=== PATIENT | female | born 2000 | race Caucasian/White ===

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

== ENCOUNTER → 2018-06-17 11:55 | Outpatient (CLI) | payer OTHER, MEDICAID, SELFPAY ==
--- NOTE | 2018-06-17 | DI.RAD.S_ITS ---
PROCEDURE: XR KNEE RT 3V INDICATIONS: RIGHT KNEE PAIN TECHNIQUE: 3 views of the knee were acquired. COMPARISON: None. FINDINGS: Bones: No fractures or dislocations. No suspicious bony lesions. Soft tissues: No joint effusion. No suspicious soft tissue calcifications. IMPRESSION: Negative right knee. If the patient's pain or other symptoms persist, consider further evaluation with MRI Dictated by: Arnie Liu M.D. on 06/17/2018 at 14:16 Approved by: Arnie Liu M.D. on 06/17/2018 at 14:17
== END ==
PROVIDERS: PCP Internal Medicine; Visit Provider Physician Assistant
DX: M25.561 Pain in right knee (principal)
CPT/HCPCS: 73562

== ENCOUNTER → 2018-08-15 12:29 | Outpatient (CLI) | payer OTHER, MEDICAID, SELFPAY ==
[2018-08-15 13:33] LABS: Add Manual Diff / Slide Review NO; Basophils Absolute Auto 0 /uL (0-100); Basophils Percent Auto 0.7 % (0-2); Eosinophils Absolute Auto 300 /uL (0-450); Eosinophils Percent Auto 4.1 % (2-4); Hematocrit 44.1 % (36-46); Hemoglobin 14.8 g/dL (12.0-16.0); Lymphocytes Absolute Auto 2600 /uL (1100-4500); Lymphocytes Percent Auto 39.9 % (25-40); Mean Corpuscular HGB Conc 33.5 % (30-36); Mean Corpuscular Hemoglobin 29.2 PG (26-34); Mean Corpuscular Volume 87.2 fL (80-100); Monocytes Absolute Auto 400 /uL (0-900); Neutrophils Absolute Auto 3200 /uL (1500-7000); Neutrophils Percent Auto 49.3 % (50-75); Platelet Count 230 X10^3/uL (150-400); Red Blood Cell Count 5.06 X10^6/uL (4.0-5.2); Red Cell Distribution Width 13.2 % (11.6-14.8); White Blood Cell Count 6.5 X10^3/uL (4.5-11.0)
[2018-08-15 13:47] LABS: Alanine Aminotransferase 28 IU/L (9-52); Albumin 4.5 g/dL (3.5-5.0); Albumin Globulin Ratio 1.6 (1.0-2.8); Alkaline Phosphatase 85 U/L (38-126); Aspartate Aminotransferase 23 IU/L (14-36); BUN Creatinine Ratio 18.6 (6-22); Bilirubin Total 0.2 mg/dL (0.2-1.3); Blood Urea Nitrogen 13 mg/dL (7-17); Calcium 9.6 mg/dL (8.4-10.2); Carbon Dioxide 26 mmol/L (22-32); Chloride 102 mmol/L (98-107); Estimated Glomerular Filt Rate > 60.0 mL/min (>60); Globulin 2.8 g/dL (1.7-4.1); Glucose 103 mg/dL (70-100); HEMOLYSIS < 15 (0-50); Potassium 4.4 mmol/L (3.4-5.1); Sodium 139 mmol/L (137-145); Total Protein 7.3 g/dL (6.3-8.2)
== END ==
PROVIDERS: PCP Family Medicine; Visit Provider Family Medicine
DX: B19.20 Unspecified viral hepatitis C without hepatic coma (principal); F19.11 Other psychoactive substance abuse, in remission
CPT/HCPCS: 36415; 80053; 85025; 87522

== ENCOUNTER 2019-04-02 07:33 | Emergency (ER) | payer OTHER, MEDICAID, SELFPAY ==
[2019-04-02 07:43] VITALS: BP 125/75; PULSE 87; RESP 15; TEMP 37; O2SAT 100; BMI 35.5
[2019-04-02 08:00] VITALS: BP 122/94; PULSE 94; RESP 14; O2SAT 100
--- NOTE | 2019-04-02 08:17 | ED_ITS ---
HPI - Animal Bite General Chief Complaint: Animal Bite Stated Complaint: cat bite right hand thumb Time Seen by Provider: 04/02/19 07:56 Source: patient Mode of arrival: Ambulatory History of Present Illness HPI narrative: 19-year-old woman playing with her approximately year old cat. The cat bit her right thenar eminence this happened approximately 11:00 a.m. last night. There are puncture wounds noted slight erythema. No streaking. It is beginning to get more sore. Patient comes in with her partner and they are concerned that there may be infection developing. No fevers no chills no lymphangitis streaking no significant bleeding no axillary adenopathy complaint: animal bite Onset (ago): hour(s) Animal: cat Description of animal: household pet Mechanism: bite Location - Extremities: Right: hand (Feline puncture wounds on the thenar eminence) Severity scale (1-10): 4 Context: playing with animal Related Data Patient tetanus UTD: Yes Home Medications Medication Instructions Recorded Confirmed methadone 10 mg/mL oral concentrate 80 mg PO DAILY ml 06/11/18 09/18/18 Previous Rx's Medication Instructions Recorded amoxicillin-pot clavulanate 1 tab PO BID #20 tab NS 04/02/19 [Augmentin] Allergies Allergy/AdvReac Type Severity Reaction Status Date / Time No Known Drug Allergies Allergy Verified 04/02/19 07:43 Review of Systems Review of Systems Narrative: Negative except for HPI, otherwise unremarkable Patient History Medical History (Updated 04/02/19 @ 08:26 by Roya Hammond MD) ADHD (Chronic ~2007) Depression (Chronic ~2012) Gonorrhea (Chronic ~2015) Hepatitis C (Chronic ~2015) Hepatitis C (Resolved) Polysubstance abuse (Resolved) Surgical History Anesthesia (Resolved) Status post tonsillectomy and adenoidectomy (~2005) Social History Smoking Status: Current every day smoker Substance Use Type: does not use Exam Initial Vital Signs Initial Vital Signs: Vital Signs Temperature 98.6 F 04/02/19 07:43 Pulse Rate 87 04/02/19 07:43 Respiratory Rate 15 04/02/19 07:43 Blood Pressure 125/75 04/02/19 07:43 Pulse Oximetry 100 04/02/19 07:43 Const General: healthy appearing Chest Breast Palpation: No axillary lymphadenopathy Resp Effort & Inspection: normal respiratory effort and able to speak in complete sentences Auscultation: clear to auscultation bilaterally Cardio Rate: regular rate Rhythm: regular rhythm Heart Sounds: no murmurs GI Inspection: normal to inspection Palpation: soft and No tender Skin Wounds: wound noted (Three puncture wounds consistent with a cat bite over the right thenar emen) Other: No evidence of abscess or deeper tissue infection at this time Neuro Other: Right upper extremity is entirely neurologically intact. Full range of motion at all fingers and full sensation to all fingers Psych Mental Status: mental status grossly normal Course Vital Signs Vital signs: Vital Signs - 8 hr 04/02/19 07:43 04/02/19 08:00 04/02/19 08:29 Temperature 98.6 F Pulse Rate 87 94 H 78 Respiratory Rate 15 14 14 Blood Pressure 125/75 Blood Pressure [Left Arm] 122/94 H 104/65 Pulse Oximetry 100 100 99 04/02/19 08:32 Temperature 98.4 F Pulse Rate 89 Respiratory Rate 12 Blood Pressure 104/65 Blood Pressure [Left Arm] Pulse Oximetry 100 MDM - Animal Bite Differential Diagnosis Differential diagnosis: Likely cat bite Medical Records Attestation: I reviewed the patient's medical records. [facility] Narrative Medical decision making narrative: Within 12 hours of a cat bite. It is her own cat. She is up-to-date on her tetanus status. No evidence of abscess or infect ion or deeper tissue concerns at this time. Will begin Augmentin. Not current on control pills. We reviewed signs and symptoms of worsening or deep tissue infection with clear instructions return to the emergency department should these develop. Safe for home discharge Discharge Plan Departure Patient Disposition: Home Clinical Impression: Cat bite Discharge Date/Time: 04/02/19 08:32 Instructions: DI for Cat Bite Activity Restrictions/Additional Instructions: I am glad she came in so quickly. Cat bites can get quite infected. We clearly reviewed signs and symptoms of what a deep tissue hand infection could look like. You do not have this at this time. I am going to start you on Augmentin 875 mg twice a day. Please take the 1st dose as soon as possible. I would expect slight redness and pain continuing for the next 24 hours and then significant improvement. If you have trouble moving your hand, fingers, or wrist or notice increasing swelling or red streaks running appear arm or any fevers you do need to return to the emergency department for additional evaluation. Prescriptions: New amoxicillin-pot clavulanate [Augmentin] 875-125 mg tablet 1 tab PO BID Qty: 20 RF: 0 No Action methadone 10 mg/mL concentrate 80 mg PO DAILY RF: 0 Referrals: Margie Yu DO [Primary Care Provider] -
[2019-04-02 08:29] VITALS: BP 104/65; PULSE 78; RESP 14; O2SAT 99
[2019-04-02 08:32] VITALS: BP 104/65; PULSE 89; RESP 12; TEMP 36.9; O2SAT 100
== END 2019-04-02 08:32 | disposition home or self-care (01) ==
PROVIDERS: Emergency Provider Emergency Medicine; PCP Family Medicine
DX: S61.051A Open bite of right thumb without damage to nail, initial encounter (principal); W55.01XA Bitten by cat, initial encounter
CPT/HCPCS: 99282

== ENCOUNTER → 2019-07-10 13:10 | Outpatient (CLI) | payer OTHER, MEDICAID, SELFPAY ==
[2019-07-10 14:39] LABS: Add Manual Diff / Slide Review NO; Basophils Absolute Auto 0 /uL (0-100); Basophils Percent Auto 0.8 % (0-2); Eosinophils Absolute Auto 200 /uL (0-450); Eosinophils Percent Auto 3.8 % (2-4); Hematocrit 40.1 % (36-46); Hemoglobin 13.5 g/dL (12.0-16.0); Lymphocytes Absolute Auto 2100 /uL (1100-4500); Lymphocytes Percent Auto 45.5 % (25-40); Mean Corpuscular HGB Conc 33.7 % (30-36); Mean Corpuscular Hemoglobin 30.2 PG (26-34); Mean Corpuscular Volume 89.7 fL (80-100); Monocytes Absolute Auto 400 /uL (0-900); Monocytes Percent Auto 8.4 % (3-14); Neutrophils Absolute Auto 2000 /uL (1500-7000); Neutrophils Percent Auto 41.5 % (50-75); Platelet Count 193 X10^3/uL (150-400); Red Blood Cell Count 4.47 X10^6/uL (4.0-5.2); Red Cell Distribution Width 13.1 % (11.6-14.8); White Blood Cell Count 4.7 X10^3/uL (4.5-11.0)
[2019-07-10 14:53] LABS: Alanine Aminotransferase 64 IU/L (<35); Albumin 4.2 g/dL (3.5-5.0); Albumin Globulin Ratio 1.4 (1.0-2.8); Alkaline Phosphatase 61 U/L (38-126); Aspartate Aminotransferase 28 IU/L (14-36); BUN Creatinine Ratio 33.9 (6-22); Bilirubin Total 0.3 mg/dL (0.2-1.3); Blood Urea Nitrogen 21 mg/dL (7-17); Calcium 9.4 mg/dL (8.4-10.2); Carbon Dioxide 26 mmol/L (22-32); Chloride 106 mmol/L (98-107); Cholesterol 123 mg/dL (140-199); Estimated Glomerular Filt Rate > 60.0 mL/min (>60); Globulin 2.9 g/dL (1.7-4.1); Glucose 85 mg/dL (70-100); HDL Cholesterol 39 mg/dL (40-60); HEMOLYSIS < 15 (0-50); LDL Cholesterol Calculated 75 mg/dL (<100); Potassium 4.1 mmol/L (3.4-5.1); Sodium 139 mmol/L (137-145); Total Protein 7.1 g/dL (6.3-8.2); Triglycerides 44 mg/dL (35-150)
[2019-07-10 16:33] LABS: Thyroid Stimulating Hormone 1.72 uIU/mL (0.47-4.68)
[2019-07-10 20:12] LABS: Folate > 20.0 ng/mL (2.76-20.0); Vitamin B12 761 pg/mL (239-931)
== END ==
PROVIDERS: PCP Nurse Practitioner Family
DX: Z13.228 Encounter for screening for other metabolic disorders (principal); Z79.899 Other long term (current) drug therapy
CPT/HCPCS: 36415; 80053; 80061; 82306; 82607; 82746; 84443; 85025

== ENCOUNTER → 2022-01-31 11:32 | Outpatient (CLI) | payer OTHER, MEDICAID, SELFPAY ==
--- NOTE | 2022-02-12 06:56 | DI.NM.S_ITS ---
DATE OF SERVICE: 01/31/2022 PROCEDURE: Exercise stress test. INDICATION: Chest pain. CARDIAC STRESS: The patient underwent exercise stress test under the supervision of an attending staff. Patient walked on José Luis protocol for 6 minutes and 19 seconds, achieved maximum heart rate of 183, which was 93 percent of target heart rate. Baseline blood pressure of 136/80 and peak blood pressure 166/92 mmHg. Achieved 7 METs of workload and SRIRAM positive 39 percent. The patient felt shortness of breath and fatigue. No chest discomfort. Baseline rhythm was sinus. During stress, no convincing ischemic changes seen. Rare PVCs. No significant sustained arrhythmias. CONCLUSION: Exercise stress test is negative for inducible ischemia. Mildly hypertensive blood pressure response. Poor exercise tolerance. Functional aerobic impairment positive 39 percent. No chest pain. No significant sustained arrhythmias. Traci Short - BATSHEVA/zaida/rebeca doc#: [id number]/job#: [id number] dd: 01/31/2022 17:45:00 dt: 01/31/2022 18:04:00 DICTATING /COPIES TO: Derek Gonzalez MD COPIES MNE: NORA;
== END ==
PROVIDERS: PCP Nurse Practitioner Family; Referring Provider Internal Medicine Cardiovascular Disease; Visit Provider Internal Medicine Cardiovascular Disease
DX: R07.9 Chest pain, unspecified (principal); R06.00 Dyspnea, unspecified
CPT/HCPCS: 93017

== ENCOUNTER 2022-03-30 06:15 | Emergency (ER) | payer OTHER, MEDICAID, SELFPAY ==
[2022-03-30 06:20] VITALS: BP 129/67; PULSE 82; RESP 18; TEMP 36.8; O2SAT 96
--- NOTE | 2022-03-30 06:32 | ED.GENADULT ---
HPI - General Adult General Chief complaint: Upper Respiratory Symptoms Stated complaint: covid+ turning into pneumonia Time Seen by Provider: 03/30/22 06:16 Source: patient Mode of arrival: Ambulatory History of Present Illness HPI narrative: 22-year-old young woman with a history of opioid use disorder currently on maintenance methadone who is not vaccinated against COVID and is not yet had a COVID presents on day 7-8 of COVID infection. Symptoms started 7 days ago with body aches, headaches, cough, fevers, fatigue and moderate sore throat and rhinorrhea. She is been using ibuprofen and Tylenol. She is concerned that by a week she is still feeling weak, coughing, feels that there may be fluid collecting in her chest and is worried that she may now have a pneumonia. She does not report orthopnea does note that she is slightly dyspneic with exertion. She has not had any lower extremity edema. She was nauseated yesterday but no significant vomiting. She has not had any abdominal pain, no diarrhea or constipation. Related Data Home Medications Medication Instructions Recorded Confirmed methadone 10 mg/mL oral concentrate 80 mg PO DAILY 06/11/18 09/18/18 Previous Rx's Medication Instructions Recorded Augmentin 875 mg-125 mg tablet 1 tab PO BID #20 tabs 04/02/19 (amoxicillin-pot clavulanate) benzonatate 200 mg capsule 200 mg PO BID-TID PRN cough #20 03/30/22 caps ondansetron 4 mg disintegrating 4 mg PO Q8H PRN nausea and 03/30/22 tablet vomiting #14 tabs Allergies Allergy/AdvReac Type Severity Reaction Status Date / Time No Known Drug Allergies Allergy Verified 04/02/19 07:43 Review of Systems Review of Systems Narrative: Remainder of complete review of systems is otherwise unremarkable except for that included in the HPI. Patient History Medical History ADHD (~2007) Depression (~2012) Gonorrhea (~2015) Hepatitis C (~2015) Hepatitis C Polysubstance abuse Surgical History Anesthesia Status post tonsillectomy and adenoidectomy (~2005) Family History Brother Age: 32 Autism Father Age: 66 Hypertension Mother Age: 56 Mental health problem Social History Smoking Status: Current every day smoker Smoking Status: Current every day smoker Substance Use Type: does not use Exam Initial Vital Signs Initial Vital Signs: Vital Signs Temperature 98.2 F 03/30/22 06:20 Pulse Rate 82 03/30/22 06:20 Respiratory Rate 18 03/30/22 06:20 Blood Pressure 129/67 03/30/22 06:20 Pulse Oximetry 96 03/30/22 06:20 Oxygen Delivery Method 03/30/22 06:20 General: Mildly ill-appearing but in no acute distress. Able to give a complete and coherent history. Well-nourished well-developed HEENT: Moist mucous membranes, normal sclera with reactive pupils, somewhat pale with circles under her eyes. Minimal pharyngeal erythema without exudate. No cervical adenopathy Respiratory: Lungs are clear to auscultation, no wheezing no rales no rhonchi. Full and symmetrical air movement Cardiac: Regular rate and rhythm no murmurs no bruits Abdomen: Soft, nontender, good bowel tones, no flank pain Skin: Warm and dry, no rashes Neurologic: Grossly neurologically intact with no obvious asymmetries or abnormalities Extremities: No trauma, well perfused Psych: Cooperative, appropriate insight and affect Course Orders Ordered: Benzonatate (Benzonatate 100 Mg Capsule) 100 mg PO NOW ONE Stop: 03/30/22 06:33 Vital Signs Vital signs: Vital Signs - 8 hr 03/30/22 06:20 Temperature 98.2 F Pulse Rate 82 Respiratory Rate 18 Blood Pressure 129/67 Pulse Oximetry 96 Oxygen Delivery Method Room Air Medical Decision Making [facility] Narrative Medical decision making narrative: 22-year-old woman with 2 positive COVID tests at home on day 7-8 of symptoms. No wheezing benign exam, able to keep food and liquids down with oxygen saturations at 98% on room air. Talked about supportive care for COVID as well as anticipated course of resolution. Encouraged her to get a pulse ox monitor with instructions to return if saturations are consistently below 92%. At this point she is not a candidate for dexamethasone and at day 7 8 of symptoms or paxlovid Findings are reviewed with patient and her friend, questions are answered and they are safe for discharge home Discharge Plan Departure Patient Disposition: Home Clinical Impression: COVID-19 Instructions: COVID-19 Activity Restrictions/Additional Instructions: Thank you for coming in today I am sorry that you are still feeling so yucky. Typically with your 1st COVID infection when you have not been vaccinated day 7-8 clearly is a day when things are typically getting a bit worse. From this point I would expect symptoms to improve however if you do find that your having more difficulties with shortness of breath it would be appropriate to come back to the emergency department I encourage you to by portable oxygen saturation monitor. These are available in all of the local pharmacies. If your oxygen levels are consistently below 92% you do need to return to the emergency department. If your oxygen levels remain in the 98% despite the headaches, fevers and body aches there is not much that we are going to be able to do other than recommend ibuprofen, Tylenol cough medicine and nausea medicine. I am going to give you a prescription for Tessalon Perles, this can help with cough. I am also going to give you a prescription for Zofran which can help with nausea. Prescriptions have been electronically transmitted to [facility] Using 400 mg of ibuprofen (2 mjrb-atr-kordccy pills) and 1 Tylenol every 6 hours can be very helpful in controlling pain. I wish you the best. Like we discussed, you are now developing natural antibodies against COVID. Influenza is running rampant right now and getting an influenza vaccine can prevent having a 2nd round of horrible viral infection this year. Prescriptions: New benzonatate 200 mg capsule 200 mg PO BID-TID PRN (Reason: cough) Qty: 20 0RF ondansetron 4 mg tablet,disintegrating 4 mg PO Q8H PRN (Reason: nausea and vomiting) Qty: 14 0RF No Action methadone 10 mg/mL concentrate 80 mg PO DAILY amoxicillin-pot clavulanate [Augmentin] 875-125 mg tablet 1 tab PO BID Qty: 20 0RF Referrals: Shavon Ha ARNP [Primary Care Provider] -
[2022-03-30] MEDS: BENZONATATE 100 MG CAPSULE PO (06:41)
[2022-03-30 06:47] VITALS: BP 135/77; PULSE 79; RESP 16; O2SAT 98
== END 2022-03-30 06:48 | disposition home or self-care (01) ==
PROVIDERS: Emergency Provider Emergency Medicine; PCP Nurse Practitioner Family
DX: U07.1 COVID-19 (principal)
CPT/HCPCS: 99283

== ENCOUNTER 2022-11-05 23:35 | Emergency (ER) | payer OTHER, MEDICAID, SELFPAY ==
[2022-11-05 23:41] VITALS: BP 142/78; PULSE 87; RESP 18; TEMP 37.6; O2SAT 100; BMI 43.5
--- NOTE | 2022-11-06 00:25 | ED.GENADULT ---
HPI - General Adult General Chief complaint: Abdominal Pain Stated complaint: constipation Time Seen by Provider: 11/05/22 23:41 Source: patient Mode of arrival: Ambulatory History of Present Illness HPI narrative: Patient is a 22-year-old female. Has a longstanding history of issues with constipation. She states that at baseline she normally goes 1-2 weeks before she has a bowel movement and then has a very large hard bowel movement. States she very frequently becomes sick around these times and then the will process starts over again. She does take fiber on a daily basis. She has been doing MiraLax every day for the past month. She is also having some nausea but no vomiting. No urinary symptoms. She is not seen a GI doctor for this. She has been prescribed some medications by her primary doctor. Related Data Home Medications Medication Instructions Recorded Confirmed methadone 10 mg/mL oral concentrate 80 mg PO DAILY 06/11/18 09/18/18 Previous Rx's Medication Instructions Recorded Augmentin 875 mg-125 mg tablet 1 tab PO BID #20 tabs 04/02/19 (amoxicillin-pot clavulanate) benzonatate 200 mg capsule 200 mg PO BID-TID PRN cough #20 03/30/22 caps ondansetron 4 mg disintegrating 4 mg PO Q8H PRN nausea and 03/30/22 tablet vomiting #14 tabs peg 3350-electrolytes 236 240 ml PO Q10M #4,000 mL 11/06/22 gram-22.74 gram-6.74 gram-5.86 gram solution (Golytely) Allergies Allergy/AdvReac Type Severity Reaction Status Date / Time No Known Drug Allergies Allergy Verified 04/02/19 07:43 Review of Systems Constitutional Constitutional: Reports system reviewed and no additional complaints, except as documented Gastrointestinal Gastrointestinal: Reports system reviewed and no additional complaints, except as documented Genitourinary Genitourinary: Reports system reviewed and no additional complaints, except as documented Integumentary/Breasts Skin/Breast: Reports system reviewed and no additional complaints, except as documented Patient History Medical History ADHD (~2007) Depression (~2012) Gonorrhea (~2015) Hepatitis C (~2015) Hepatitis C Polysubstance abuse Surgical History Anesthesia Status post tonsillectomy and adenoidectomy (~2005) Family History Brother Age: 32 Autism Father Age: 66 Hypertension Mother Age: 56 Mental health problem Social History Smoking Status: Current every day smoker Smoking Status: Current every day smoker tobacco type: cigarettes Substance Use Type: does not use Exam Initial Vital Signs Initial Vital Signs: Vital Signs Temperature 99.7 F H 11/05/22 23:41 Pulse Rate 87 11/05/22 23:41 Respiratory Rate 18 11/05/22 23:41 Blood Pressure 142/78 H 11/05/22 23:41 Pulse Oximetry 100 11/05/22 23:41 Oxygen Delivery Method Room Air 11/05/22 23:41 HENMT Head: normal to inspection and normocephalic Resp Effort & Inspection: normal respiratory effort GI Inspection: normal to inspection and non-distended Course Orders Ordered: ED Orders 11/06/22 00:35 XR abdomen 1V Stat Vital Signs Vital signs: Vital Signs - 8 hr 11/05/22 23:41 Temperature 99.7 F H Pulse Rate 87 Respiratory Rate 18 Blood Pressure 142/78 H Pulse Oximetry 100 Oxygen Delivery Method Room Air Medical Decision Making Lab Data Lab results reviewed: Yes I reviewed the patient's lab results. Labs: Point of Care Testing Test Results Negative Point of care testing: Point of Care Testing Test Results Negative Imaging Data Abdominal x-ray: My Impression: Does have a stool burden. No free air. MDM Narrative Medical decision making narrative: Based on her history physical in her x-ray I have low suspicion for bowel obstruction. I have a high suspicion that this is constipation. Had a long discussion with her regarding her symptoms. I did recommend that she talk with her primary doctor about a follow-up with GI. There is no indication for further radiologic studies. No indication for lab work. We did discuss how she can increase her fluid intake and also increase her laxative use at home. I will prescribe a prescription for GoLYTELY. Will have her take this at home and contact her primary doctor for follow-up. She was given return precautions. She expressed understanding and agreement. Discharge Plan Departure Patient Disposition: Home Clinical Impression: Constipation Instructions: DI for Constipation Activity Restrictions/Additional Instructions: I do recommend that you increase your fluid intake. Continue to do the laxatives and stool softeners like we discussed. I do recommend that you contact your primary doctor to discuss the indications for referral to see a electronic funds transfer coordinator. Return to the emergency department for new or worsening symptoms. Prescriptions: New peg 3350-electrolytes [Golytely] 236-22.74-6.74 -5.86 gram recon soln 240 ml PO Q10M Qty: 4000 0RF Rx Instructions: until fecal effluent is clear No Action methadone 10 mg/mL concentrate 80 mg PO DAILY amoxicillin-pot clavulanate [Augmentin] 875-125 mg tablet 1 tab PO BID Qty: 20 0RF benzonatate 200 mg capsule 200 mg PO BID-TID PRN (Reason: cough) Qty: 20 0RF ondansetron 4 mg tablet,disintegrating 4 mg PO Q8H PRN (Reason: nausea and vomiting) Qty: 14 0RF Referrals: Shavon Ha ARNP [Primary Care Provider] - Stand Alone Forms: Patient Portal/API
--- NOTE | 2022-11-06 00:35 | DI.RAD.S_ITS ---
PROCEDURE: XR ABDOMEN 1V INDICATIONS: eval for free air TECHNIQUE: One view of the abdomen acquired. COMPARISON: None. FINDINGS: Surgical changes and devices: None. Bowel: Bowel gas pattern appears within normal limits where visualized. Soft tissues: Evaluation for intraperitoneal free air is limited due to supine technique and incomplete inclusion of the upper abdomen. No suspicious abdominal calcifications. Bones: No suspicious bony lesions. IMPRESSION: 1. Visualized bowel gas pattern within normal limits. 2. If there is persistent clinical suspicion for pneumoperitoneum, recommend dedicated upright or lateral decubitus studies. Dictated by: Daniele Green M.D. on 11/06/2022 at 1:40 Approved by: Daniele Green M.D. on 11/06/2022 at 1:42
[2022-11-06 01:27] VITALS: BP 131/82; PULSE 84; RESP 16; O2SAT 99
== END 2022-11-06 01:27 | disposition home or self-care (01) ==
PROVIDERS: Emergency Provider Emergency Medicine; PCP Nurse Practitioner Family
DX: K59.00 Constipation, unspecified (principal)
CPT/HCPCS: 74018; 81025; 99281; 99283

== ENCOUNTER → 2023-01-26 17:01 | Outpatient (CLI) | payer OTHER, MEDICAID, SELFPAY | PROVIDERS: PCP Nurse Practitioner Family; Visit Provider Nurse Practitioner Family | DX: N89.8 Other specified noninflammatory disorders of vagina (principal) | CPT/HCPCS: 81002; 87086; 87210 ==

== ENCOUNTER 2023-10-29 00:49 | Emergency (ER) | payer OTHER, MEDICAID, SELFPAY ==
[2023-10-29 01:34] VITALS: BP 195/85; PULSE 71; RESP 16; TEMP 36.6; O2SAT 95; BMI 41.9
[2023-10-29] MEDS: ONDANSETRON 4 MG/2 ML INJ IV (02:17)
[2023-10-29 02:26] LABS: Add Manual Diff / Slide Review NO; Basophils Absolute Auto 0 /uL (0-100); Basophils Percent Auto 0.3 % (0-2); Eosinophils Absolute Auto 100 /uL (0-450); Eosinophils Percent Auto 1.1 % (2-4); Hematocrit 46.1 % (36-46); Hemoglobin 15.7 g/dL (12.0-16.0); Lymphocytes Absolute Auto 3200 /uL (1100-4500); Lymphocytes Percent Auto 31.9 % (25-40); Mean Corpuscular HGB Conc 34.1 % (30-36); Mean Corpuscular Hemoglobin 29.6 PG (26-34); Mean Corpuscular Volume 86.6 fL (80-100); Monocytes Absolute Auto 500 /uL (0-900); Monocytes Percent Auto 5.3 % (3-14); Neutrophils Absolute Auto 6200 /uL (1500-7000); Neutrophils Percent Auto 61.4 % (50-75); Platelet Count 281 X10^3/uL (150-400); Red Blood Cell Count 5.32 X10^6/uL (4.0-5.2); Red Cell Distribution Width 12.7 % (11.6-14.8); White Blood Cell Count 10.1 X10^3/uL (4.5-11.0)
[2023-10-29 02:27] LABS: Alanine Aminotransferase 24 IU/L (<35); Albumin 4.4 g/dL (3.5-5.0); Albumin Globulin Ratio 1.4 (1.0-2.8); Alkaline Phosphatase 69 U/L (38-126); Aspartate Aminotransferase 24 IU/L (14-36); BUN Creatinine Ratio 36.6 (6-22); Bilirubin Total 0.4 mg/dL (0.2-1.3); Blood Urea Nitrogen 26 mg/dL (7-17); Calcium 9.1 mg/dL (8.4-10.2); Carbon Dioxide 32 mmol/L (22-32); Chloride 103 mmol/L (98-107); Estimated Glomerular Filt Rate > 60 mL/min (>60); Globulin 3.2 g/dL (1.7-4.1); Glucose 110 mg/dL (70-100); HEMOLYSIS < 15 (0-50); Lipase 75 U/L (23-300); Potassium 4.2 mmol/L (3.4-5.1); Sodium 140 mmol/L (137-145); Total Protein 7.6 g/dL (6.3-8.2)
--- NOTE | 2023-10-29 04:40 | ED.ABDPAIN ---
HPI - Abdominal Pain <Gris Duque DO - Last Filed: 10/30/23 01:23> General Chief Complaint: Abdominal Pain Stated Complaint: abd pain, n/v, back pain Time Seen by Provider: 10/29/23 04:34 Source: patient Mode of arrival: Family Vehicle History of Present Illness HPI narrative: Patient is a 23-year-old female history of heroin use but has been clean in going to methadone clinic for about 5 years. For the last 3 years she has had some ongoing issues with constipation and abdominal issues. She has had increasing left lower quadrant pain worsening today. She was previously here in the ED about a year ago for something similar and had a KUB x-ray which was positive for constipation. She is no longer feeling nauseous she did has not really had any vomiting no fever or chills. No painful frequent urination. She denies any history of ovarian cysts Related Data Home Medications Medication Instructions Recorded Confirmed methadone 10 mg/mL oral concentrate 80 mg PO DAILY 06/11/18 09/18/18 Previous Rx's Medication Instructions Recorded peg 3350-electrolytes 236 240 ml PO Q10M #4,000 mL 11/06/22 gram-22.74 gram-6.74 gram-5.86 gram solution (Golytely) Allergies Allergy/AdvReac Type Severity Reaction Status Date / Time No Known Drug Allergies Allergy Verified 01/26/23 17:06 Review of Systems <Roya Hammond MD - Last Filed: 10/29/23 09:52> Review of Systems Narrative: Pertinent positive and negative findings as per HPI Patient History <Gris Duque DO - Last Filed: 10/30/23 01:23> Medical History Hepatitis C Polysubstance abuse Depression (~2012) ADHD (~2007) Gonorrhea (~2015) Hepatitis C (~2015) Surgical History Anesthesia Status post tonsillectomy and adenoidectomy (~2005) Family History Brother Age: 33 Autism Father Age: 67 Hypertension Mother Age: 57 Mental health problem Social History Smoking Status: Current every day smoker Smoking Status: Current every day smoker tobacco type: cigarettes Substance Use Type: does not use Exam <Gris Duque DO - Last Filed: 10/30/23 01:23> Initial Vital Signs Initial Vital Signs: Vital Signs Temperature 97.8 F 10/29/23 01:34 Pulse Rate 71 10/29/23 01:34 Respiratory Rate 16 10/29/23 01:34 Blood Pressure 195/85 H 10/29/23 01:34 Pulse Oximetry 95 10/29/23 01:34 Oxygen Delivery Method Room Air 10/29/23 01:34 GENERAL: Alert well-appearing 23-year-old female and in no acute distress. HEENT: Head atraumatic,EOMI, pupils reactive, face symmetric, moist mucous membranes CARDIOVASCULAR: Regular rate and rhythm without murmurs, rubs or gallops. RESPIRATORY: Breath sounds equal bilaterally, no wheezes rales or rhonchi. ABDOMEN: Soft, mild tenderness in left lower quadrant no guarding or rebound no distention no localization EXTREMITIES: Normal range of motion, no clubbing or edema. Neurovascularly intact NEUROLOGICAL: Alert and oriented x4.Normal gait and speech. SKIN: Warm, dry, no laceration, no petechiae, no rashes or lesions. <Roya Hammond MD - Last Filed: 10/29/23 09:52> Initial Vital Signs Initial Vital Signs: Vital Signs Temperature 97.8 F 10/29/23 01:34 Pulse Rate 71 10/29/23 01:34 Respiratory Rate 16 10/29/23 01:34 Blood Pressure 195/85 H 10/29/23 01:34 Pulse Oximetry 95 10/29/23 01:34 Oxygen Delivery Method Room Air 10/29/23 01:34 Course <Gris Duque DO - Last Filed: 10/30/23 01:23> Orders Ordered: Discontinued Medications Ketorolac Tromethamine (Ketorolac 30 Mg/Ml Vial) 15 mg IV NOW ONE Stop: 10/29/23 04:48 Last Admin: 10/29/23 05:15 Dose: 15 mg Documented By: Methadone HCl (Methadone 10 Mg Tablet) 80 mg PO NOW ONE Stop: 10/29/23 08:30 Last Admin: 10/29/23 08:38 Dose: 80 mg Documented By: CHARLY Ondansetron HCl (Ondansetron 4 Mg/2 Ml Inj) 4 mg IV NOW PRN PRN Reason: Nausea And Vomiting Last Admin: 10/29/23 02:17 Dose: 4 mg Documented By: VEENA Ondansetron HCl (Ondansetron 4 Mg Odt) 4 mg PO NOW PRN PRN Reason: Nausea And Vomiting Last Admin: 10/29/23 08:41 Dose: 4 mg Documented By: CHARLY Vital Signs Vital signs: Vital Signs - 8 hr 10/29/23 01:34 Temperature 97.8 F Pulse Rate 71 Respiratory Rate 16 Blood Pressure 195/85 H Pulse Oximetry 95 Oxygen Delivery Method Room Air <Roya Hammond MD - Last Filed: 10/29/23 09:52> Orders Ordered: Discontinued Medications Ketorolac Tromethamine (Ketorolac 30 Mg/Ml Vial) 15 mg IV NOW ONE Stop: 10/29/23 04:48 Last Admin: 10/29/23 05:15 Dose: 15 mg Documented By: Methadone HCl (Methadone 10 Mg Tablet) 80 mg PO NOW ONE Stop: 10/29/23 08:30 Last Admin: 10/29/23 08:38 Dose: 80 mg Documented By: CHARLY Ondansetron HCl (Ondansetron 4 Mg/2 Ml Inj) 4 mg IV NOW PRN PRN Reason: Nausea And Vomiting Last Admin: 10/29/23 02:17 Dose: 4 mg Documented By: VEENA Ondansetron HCl (Ondansetron 4 Mg Odt) 4 mg PO NOW PRN PRN Reason: Nausea And Vomiting Last Admin: 10/29/23 08:41 Dose: 4 mg Documented By: CHARLY Vital Signs Vital signs: Vital Signs - 8 hr 10/29/23 01:34 Temperature 97.8 F Pulse Rate 71 Respiratory Rate 16 Blood Pressure 195/85 H Pulse Oximetry 95 Oxygen Delivery Method Room Air MDM - Abdominal Pain <Gris Duque DO - Last Filed: 10/30/23 01:23> Lab Data 10/29/23 02:10 10/29/23 02:10 Labs: Lab Results 10/29/23 10/29/23 10/29/23 Range/Units 01:38 02:10 05:00 WBC 10.1 (4.5-11.0) X10^3/uL RBC 5.32 H (4.0-5.2) X10^6/uL Hgb 15.7 (12.0-16.0) g/dL Hct 46.1 H (36-46) % MCV 86.6 (80-100) fL MCH 29.6 (26-34) PG MCHC 34.1 (30-36) % RDW 12.7 (11.6-14.8) % Plt Count 281 (150-400) X10^3/uL Neut % (Auto) 61.4 (50-75) % Lymph % (Auto) 31.9 (25-40) % [place] % (Auto) 5.3 (3-14) % Eos % (Auto) 1.1 L (2-4) % Baso % (Auto) 0.3 (0-2) % Neut # (Auto) 6200 (2524-0745) /uL Lymph # (Auto) 3200 (1710-8759) /uL [place] # (Auto) 500 (0-900) /uL Eos # (Auto) 100 (0-450) /uL Baso # (Auto) 0 (0-100) /uL Sodium 140 (137-145) mmol/L Potassium 4.2 (3.4-5.1) mmol/L Chloride 103 (98-107) mmol/L Carbon Dioxide 32 (22-32) mmol/L BUN 26 H (7-17) mg/dL Creatinine 0.71 (0.52-1.04) mg/dL Estimated GFR > 60 (>60) mL/min BUN/Creatinine Ratio 36.6 H (6-22) Glucose 110 H (70-100) mg/dL Calcium 9.1 (8.4-10.2) mg/dL Total Bilirubin 0.4 (0.2-1.3) mg/dL AST 24 (14-36) IU/L ALT 24 (<35) IU/L Alkaline Phosphatase 69 (38-126) U/L Total Protein 7.6 (6.3-8.2) g/dL Albumin 4.4 (3.5-5.0) g/dL Globulin 3.2 (1.7-4.1) g/dL Albumin/Globulin Ratio 1.4 (1.0-2.8) Lipase 75 (23-300) U/L Serum , Qual Negative (Negative) Urine Color Yellow Urine Appearance Clear Urine pH 6.0 (4.5-8.0) Ur Specific [place] >=1.030 H (1.000-1.035) Urine Protein Trace H (Negative) Urine Glucose (UA) Negative (Negative) g/dL Urine Ketones Negative (NEGATIVE) Urine Occult Blood Negative (Negative) Urine Nitrate Negative (Negative) Urine Bilirubin Negative (NEGATIVE) Urine Urobilinogen 1.0 (0.2) E.U./dL Ur Leukocyte Esterase Negative (NEGATIVE) Urine RBC Cancelled None seen Urine WBC Cancelled None seen Ur Squamous Epith Cells Cancelled 0-1 /hpf Ur Transition Epith Cell Cancelled Ur Renal Epithelial Cell Cancelled Calcium Oxalate Crystal Cancelled Uric Acid Crystals Cancelled Triple Phos Crystals Cancelled Other Crystals Cancelled Amorphous Sediment Cancelled Urine Bacteria Cancelled None seen Hyaline Casts Cancelled Granular Casts Cancelled RBC Casts Cancelled WBC Casts Cancelled Other Casts Cancelled Urine Mucus Cancelled Urine Trichomonas Cancelled Urine Yeast Cancelled Urine Sperm Cancelled Ur Culture Indicated? Cancelled Cult not indicated Micro UA Comment Cancelled Vol Urine Centrifuged Cancelled 10ml (spun) MDM Narrative Medical decision making narrative: MDM CC: Abdominal pain Complicating co-morbidities: Methadone Corroborating data: [ ] Data collected from: [ ] Medical records reviewed: Previous ED visits Differential considered: Diverticulitis obstruction constipation ovarian cyst Exam documented above, pertinent findings include: Mild left lower quadrant pain abdomen is nonacute and some Lab Test results independently reviewed as above. Pertinent findings: WBC 10.1 hemoglobin 15.7 hematocrit 46.1 platelets 281, electrolytes stable no evidence of GODFREY Independently reviewed EKG as above Imaging studies independently reviewed: Preliminary report does show fluid in the pelvis may contain hemorrhage no active bleeding identified. Possibly small partially collapsed ovarian cyst bilaterally and possibility of small left ovarian dermoid Consultations: [ ] Treatments: Toradol Zofran Re-evaluations: Pain is improved Discussion: Patient is complaining left abdominal pain which abruptly in his now better after Toradol. CT does show some fluid in her abdomen and possibility hemorrhage. No active hemorrhage is identified she is hemodynamically stable with a normal hemoglobin and hematocrit. test is also negative. Patient signed out to Dr. Hammond, <Roya Hammond MD - Last Filed: 10/29/23 09:52> Lab Data Labs: Lab Results 10/29/23 10/29/23 10/29/23 Range/Units 01:38 02:10 05:00 WBC 10.1 (4.5-11.0) X10^3/uL RBC 5.32 H (4.0-5.2) X10^6/uL Hgb 15.7 (12.0-16.0) g/dL Hct 46.1 H (36-46) % MCV 86.6 (80-100) fL MCH 29.6 (26-34) PG MCHC 34.1 (30-36) % RDW 12.7 (11.6-14.8) % Plt Count 281 (150-400) X10^3/uL Neut % (Auto) 61.4 (50-75) % Lymph % (Auto) 31.9 (25-40) % [place] % (Auto) 5.3 (3-14) % Eos % (Auto) 1.1 L (2-4) % Baso % (Auto) 0.3 (0-2) % Neut # (Auto) 6200 (0874-3585) /uL Lymph # (Auto) 3200 (8878-1132) /uL [place] # (Auto) 500 (0-900) /uL Eos # (Auto) 100 (0-450) /uL Baso # (Auto) 0 (0-100) /uL Sodium 140 (137-145) mmol/L Potassium 4.2 (3.4-5.1) mmol/L Chloride 103 (98-107) mmol/L Carbon Dioxide 32 (22-32) mmol/L BUN 26 H (7-17) mg/dL Creatinine 0.71 (0.52-1.04) mg/dL Estimated GFR > 60 (>60) mL/min BUN/Creatinine Ratio 36.6 H (6-22) Glucose 110 H (70-100) mg/dL Calcium 9.1 (8.4-10.2) mg/dL Total Bilirubin 0.4 (0.2-1.3) mg/dL AST 24 (14-36) IU/L ALT 24 (<35) IU/L Alkaline Phosphatase 69 (38-126) U/L Total Protein 7.6 (6.3-8.2) g/dL Albumin 4.4 (3.5-5.0) g/dL Globulin 3.2 (1.7-4.1) g/dL Albumin/Globulin Ratio 1.4 (1.0-2.8) Lipase 75 (23-300) U/L Serum , Qual Negative (Negative) Urine Color Yellow Urine Appearance Clear Urine pH 6.0 (4.5-8.0) Ur Specific [place] >=1.030 H (1.000-1.035) Urine Protein Trace H (Negative) Urine Glucose (UA) Negative (Negative) g/dL Urine Ketones Negative (NEGATIVE) Urine Occult Blood Negative (Negative) Urine Nitrate Negative (Negative) Urine Bilirubin Negative (NEGATIVE) Urine Urobilinogen 1.0 (0.2) E.U./dL Ur Leukocyte Esterase Negative (NEGATIVE) Urine RBC Cancelled None seen Urine WBC Cancelled None seen Ur Squamous Epith Cells Cancelled 0-1 /hpf Ur Transition Epith Cell Cancelled Ur Renal Epithelial Cell Cancelled Calcium Oxalate Crystal Cancelled Uric Acid Crystals Cancelled Triple Phos Crystals Cancelled Other Crystals Cancelled Amorphous Sediment Cancelled Urine Bacteria Cancelled None seen Hyaline Casts Cancelled Granular Casts Cancelled RBC Casts Cancelled WBC Casts Cancelled Other Casts Cancelled Urine Mucus Cancelled Urine Trichomonas Cancelled Urine Yeast Cancelled Urine Sperm Cancelled Ur Culture Indicated? Cancelled Cult not indicated Micro UA Comment Cancelled Vol Urine Centrifuged Cancelled 10ml (spun) MDM Narrative Medical decision making narrative: MDM CC: Abdominal pain Complicating co-morbidities: Methadone Data collected from: patient Medical records reviewed: Previous ED visits Differential considered: Diverticulitis obstruction constipation ovarian cyst Exam documented above, pertinent findings include: Mild left lower quadrant pain abdomen is nonacute and some Lab Test results independently reviewed as above. Pertinent findings: WBC 10.1 hemoglobin 15.7 hematocrit 46.1 platelets 281, electrolytes stable no evidence of GODFREY Independently reviewed EKG as above Imaging studies independently reviewed: Preliminary report does show fluid in the pelvis may contain hemorrhage no active bleeding identified. Possibly small partially collapsed ovarian cyst bilaterally and possibility of small left ovarian dermoid Preliminary ultrasound result suggests moderate amount of fluid in the pelvis, normal ovaries with good blood flow bilaterally, normal uterus, no evidence of active bleeding. Consultations: 8am discussion with HALEY Hughes on-call. Recommended pelvic ultrasound and see if we can further clarify this complex pelvic fluid. We will evaluate further. [address] Manjarrez. In light of likely ruptured hemorrhagic cyst probably 2-3 days ago when she was experience the initial pain. No active bleeding in otherwise stable with no signs of infection, I believe she is going to be safe for discharge home with follow up as an outpatient sometime next week with the OBGYN clinic. Treatments: Toradol Zofran Re-evaluations: Pain is improved [address] Hammond. Care is assumed, notes reviewed. Patient is independently evaluated. Pain control has been going well over the course of the evening. She is noticing increasing pelvic pain as well as nausea beginning again. Last dose of Toradol was 4:45 a.m.. She currently is on 87 mg of methadone and does have a dose available at home. Discussion: Patient is complaining left abdominal pain which abruptly in his now better after Toradol. CT does show some fluid in her abdomen and possibility hemorrhage. No active hemorrhage is identified she is hemodynamically stable with a normal hemoglobin and hematocrit. test is also negative. Patient signed out to Dr. Hammond, Findings are reviewed with patient along with recommendations for follow up in anticipated recovery from very likely a ruptured hemorrhagic cyst that is not actively bleeding. She is multiple questions about chronic constipation. This has been a issue for her as long as she has been using narcotics. She currently is on Linzess it sounds like she is talked about this with multiple physicians in the past. Explained to her that she still has quite a bit of stool appreciated on her CT scan which is a separate issue and may be contributing to the pelvic pain but likely not the cause of today's pain. She has a bowel prep at home and that has been recommended I suggested that she go ahead and do this to completely clean out her colon and then begin with more aggressive management to prevent constipation in the 1st place. Once she is done the bowel prep and got things completely cleaned out I recommended continuing the Linzess, using MiraLax at least once scoop daily in his she has not had a bowel movement by the evening another scoop before bed. She has lactulose at home and I recommended using this if it has been more than a couple of days since a bowel movement. Going 2-3 weeks without a bowel movement is not acceptable, has likely damaged gut motility and she needs to be more assertive in making sure that she has a bowel movement far more frequently than this. Questions are answered and she is safe for discharge Discharge Plan Departure Patient Disposition: Home Clinical Impression: Hemorrhagic cyst of ovary, Chronic constipation, Methadone maintenance therapy patient Instructions: DI for Ovarian Cyst, DI for Constipation Activity Restrictions/Additional Instructions: Thank you for coming in today Your CT scan suggests complex fluid in your pelvis which typically means blood rather than simple liquid. The ultrasound that we did today does confirm that there is a small amount of blood in your pelvis, your ovaries and uterus look normal today. I suspect that you had a hemorrhagic ovarian cyst that ruptured a couple of days ago releasing the blood into your pelvis and all as beginning to heal. There was no evidence of ongoing blood loss no need for emergent surgery. I am going to recommend that you contact our OBGYN convention manager at [phone] to schedule an appointment for approximately a week for an ER follow up. Her name is Dr. Patton Regarding your constipation, with years of opioid use your gut motility is significantly slowed. I am going to suggest that you actually use the bowel prep that you have at home to completely empty your colon and then begin a more aggressive: Maintenance program. I would recommend you continue the Linzess and at least 1 scoop of MiraLax in the morning. If you have not had a bowel movement by the evening I would do another scoop of MiraLax in the evening. You can not overdose on MiraLax. It just pulls water into your stool. The amount that you need is however much it takes for you to have a bowel movement daily. If you find that it has been a number of days I would use the lactulose that you have at home to get things moving. If you have period of time where the constipation is seeming worse and worse, repeating a bowel prep may be required 2 or 3 times a your for you. Also look at diet including increasing water, fiber. Dried fruit is a good way to deliver quite a bit of fiber as well as nutrients. If you find that you are getting worse or develop any new symptoms, please feel free to return to the emergency department for further evaluation. Prescriptions: No Action methadone 10 mg/mL concentrate 80 mg PO DAILY peg 3350-electrolytes [Golytely] 236-22.74-6.74 -5.86 gram recon soln 240 ml PO Q10M Qty: 4000 0RF Rx Instructions: until fecal effluent is clear Referrals: Shavon Ha ARNP [Primary Care Provider] - Stand Alone Forms: Patient Portal/API
--- NOTE | 2023-10-29 04:47 | DI.CT.S_ITS ---
PROCEDURE: CT ABDOMEN PELVIS W CON INDICATIONS: LLq pain TECHNIQUE: After the administration of intravenous contrast, axial sections acquired from the lung bases to the pubic symphysis. Coronal and sagittal reformats were performed. For radiation dose reduction, the following was used: automated exposure control, adjustment of mA and/or kV according to patient size. COMPARISON: None. FINDINGS: Image quality: Diagnostic. Lower Chest: No significant findings. ABDOMEN: Liver: No solid mass. Gallbladder: No radiopaque gallstones or wall thickening. Biliary ducts: No biliary dilation. Pancreas: No ductal dilation. Spleen: Borderline splenomegaly. Adrenal Glands: No adrenal nodules. Kidneys and Ureters: No hydronephrosis. No solid mass. No complex renal cystic lesion which requires follow up. Stomach and Bowel: Normal colonic caliber, without significant wall thickening. Normal appendix. Peritoneum: Moderate amount of pelvic free fluid measuring slightly higher than simple fluid attenuation. No free air. Ventral Wall: No significant ventral hernia. Abdominal Nodes: No retroperitoneal or mesenteric adenopathy by size criteria. Vessels: Aorta and inferior vena cava are normal in size. PELVIS: Pelvic Organs: Visualized reproductive structures appear unremarkable. No evidence to suggest ovarian enlargement. Multiple small ovarian cysts/follicles noted. There is a small focus of macroscopic fat noted in the left ovary possibly representing a dermoid. No acute inflammatory changes in the pelvis. Bladder: No bladder wall thickening, accounting for underdistention. Pelvic Nodes: No enlarged lymph nodes. Miscellaneous: No inguinal hernias are seen. Bones: No aggressive osseous abnormality. IMPRESSION: 1. Moderate amount of pelvic free fluid measuring higher than simple fluid attenuation and may contain a small amount of hemorrhage. No evidence of active bleeding identified. Findings may represent recent rupture of a hemorrhagic ovarian cyst. No evidence for ovarian large mint or acute inflammatory changes. 2. Possible small left ovarian dermoid. No significant discrepancy with the maintenance supervisor 2nd shift radiology preliminary report. Dictated by: Leonel Leo M.D. on 10/29/2023 at 9:11 Approved by: Leonel Leo M.D. on 10/29/2023 at 9:17
[2023-10-29 04:57] LABS: Pregnancy Test Serum,Qual Negative (Negative)
[2023-10-29 05:15] LABS: Appearance Urine UA CLEAR; Bilirubin Urine UA NEGATIVE (NEGATIVE); Color Urine UA YELLOW; Glucose Urine UA NEGATIVE (Negative); Ketones Urine UA NEGATIVE (NEGATIVE); Leukocyte Esterase Urine UA NEGATIVE (NEGATIVE); Nitrite Urine UA NEGATIVE (Negative); Occult Blood Urine UA NEGATIVE (Negative); Protein Urine UA TRACE (Negative); Specific Gravity Urine UA >=1.030 (1.000-1.035)
[2023-10-29] MEDS: KETOROLAC 30 MG/ML VIAL 15 MG IV (05:15)
[2023-10-29 05:21] LABS: Bacteria Urine None Seen; Culture Indicated Urine Cult Not Indicated; RBC Urine None Seen (0-5/HPF); Squamous Epithelial Cell Urine 0-1 /HPF (0-5/HPF); Urine Volume 10mL (spun); WBC Urine None Seen (0-5/HPF)
--- NOTE | 2023-10-29 08:27 | DI.US.S_ITS ---
PROCEDURE: US PELVIC COMPLETE INDICATIONS: PAIN; COMPLEX FREE FLUID ON CT TECHNIQUE: Real-time scanning was performed of the pelvic organs, with image documentation. Additional endovaginal scanning was necessary due to incomplete visualization of the adnexal and endometrial structures by transabdominal scanning. COMPARISON: [facility], CT, CT ABDOMEN PELVIS W CON, 10/29/2023, 5:41. FINDINGS: Uterus: 6.8 x 3.5 x 4.3 cm. Endometrium measures 3 mm. This is within normal limits. Homogeneous echotexture. Anteverted positioning. Ovaries: Nonenlarged ovaries measuring 8-9 cc bilaterally. Other: Moderate amount of free flowing containing low level echoes, probably hemorrhagic products. IMPRESSION: Moderate amount of pelvic free fluid containing low-level echoes, likely hemorrhagic products. Findings are favored represent ruptured cyst contents. No evidence of torsion currently. No acute uterine abnormality by ultrasound Dictated by: Zane Keyes M.D. on 10/29/2023 at 9:34 Approved by: Zane Keyes M.D. on 10/29/2023 at 9:35
[2023-10-29] MEDS: METHADONE 10 MG TABLET 80 MG PO (08:38)
[2023-10-29] MEDS: ONDANSETRON 4 MG ODT PO (08:41)
[2023-10-29 09:56] VITALS: BP 123/76; PULSE 81; RESP 16; O2SAT 97
== END 2023-10-29 09:57 | disposition home or self-care (01) ==
PROVIDERS: Emergency Medicine; Emergency Provider Emergency Medicine; PCP Nurse Practitioner Family
DX: N83.202 Unspecified ovarian cyst, left side (principal); K59.09 Other constipation; F11.20 Opioid dependence, uncomplicated
CPT/HCPCS: 36415; 74177; 76830; 76856; 80053; 81001; 83690; 84703; 85025; 93975; 96374; 96375; 99284; J1885; J2405; Q9967